=== PATIENT | female | born 1945 | race African-American/Black ===

== ENCOUNTER 2016-09-02 06:13 | Outpatient (CLI) | payer MEDICARE, OTHER ==
[~2016-09-02] VITALS: Ht 149.9 cm; Wt 72.6 kg
[2016-09-02] VITALS (8 sets, daily range): BP systolic 106–138; BP diastolic 52–71
[~2016-09-02 06:13] MED LIST: ASPI81TA2 PO; DILT120C97 PO; DILT180C2 PO
[2016-09-02] MEDS ORDERED: PROCHLORPERAZINE 10 MG/2 ML VIAL. IV PRN (07:00)
[2016-09-02] MEDS ORDERED: HYDROMORPHONE 2 MG/ML VIAL. IV PRN (07:00)
[2016-09-02] MEDS ORDERED: FENTANYL PF 100 MCG/2 ML VIAL. IV PRN ×2 (07:00)
[2016-09-02] MEDS ORDERED: ONDANSETRON PF 4 MG/2 ML VIAL. IV PRN (07:00)
[2016-09-02] MEDS ORDERED: MORPHINE SULFATE 2 MG/ML DISP.SYRIN. IV PRN (07:00)
[2016-09-02] MEDS ORDERED: IV RINGERS,LACTATED 1000ML 1,000 ML IV SCH (07:00)
[2016-09-02] MEDS ORDERED: LIDOCAINE 1% 1 ML SYRINGE. ID PRN (07:00)
[2016-09-02] MEDS ORDERED: LIDOCAINE 2% 20 ML VIAL. ONE (07:16)
[2016-09-02] MEDS ORDERED: IODIXANOL 320 MG/ML 100 ML VIAL. ONE (07:16)
[2016-09-02] MEDS ORDERED: methylPREDNISolone SOD SUCC PF 125 MG/2 ML VIAL. IV ONE (07:30)
[2016-09-02] MEDS ORDERED: FAMOTIDINE 20 MG/2 ML VIAL IVP ONE (07:30)
[2016-09-02] MEDS ORDERED: DIPHENHYDRAMINE 50 MG/ML VIAL IM ONE (07:30)
[2016-09-02 07:50] LABS: HEMATOCRIT 38.1 % (36.0-47.0); HEMOGLOBIN 11.8 g/dL (12.0-15.5); RED BLOOD COUNT 5.26 x10^6/uL (3.50-5.40); RED CELL DISTRIBUTION WIDTH 15.7 % (11.5-14.5); WHITE BLOOD COUNT 8.1 x10^3/uL (4.0-11.0)
[2016-09-02 08:01] LABS: CALCIUM 9.3 mg/dL (8.5-10.1); CREATININE 1.1 mg/dL (0.6-1.0); GFR 59.6; POTASSIUM 4.2 mmol/L (3.5-5.1)
[2016-09-02 08:05] LABS: INR 1.2 (0.8-1.1); PROTHROMBIN TIME PATIENT 14.1 SEC (11.7-14.0)
--- NOTE | 2016-09-02 08:06 | PDOC ---
MODERATE SEDATION ASSESSMENT RISKS/ALTERNATIVES Risks/Alternatives Risks and alternatives of this type of sedation and procedure discussed with: RISK/ALTERNATIVES: Patient H & P ON CHART H & P H & P on chart and reviewed for co-morbid conditions and appropriate labs. H&P ON CHART: Yes STATUS PREG STATUS ASSESSED: N/A MEDS/ALLERGIES REVIEWED Meds/Allergies Reviewed Medications and Allergies including time and route of recently administered narcotics and sedatives. MEDS/ALLERGIES REVIEWED: Yes ASA RATING ASA RATING: II AIRWAY ASSESSMENT Airway Assessment Airway patency, oral function limitations, presence of caps, crowns, dentures, partials, and ability to extend neck assessed. AIRWAY ASSESSMENT: Yes MALLAMPATI SCORE MALLAMPATI SCORE: II PRE-SEDATION ASSESSMENT PRE-SEDATION ASSESSMENT: Yes JASON GUTIÉRREZ MD Sep 02, 2016 08:06
[2016-09-02] MEDS ORDERED: FENTANYL PF 100 MCG/2 ML VIAL. ONE (08:15)
[2016-09-02] MEDS ORDERED: MIDAZOLAM HCL 2 MG/2 ML VIAL. ONE (08:15)
[2016-09-02] MEDS ORDERED: DIPHENHYDRAMINE 50 MG/ML VIAL IVP ONE (08:45)
[2016-09-02] MEDS ORDERED: IODIXANOL 320 MG/ML 100 ML VIAL. IART ONE (09:15)
[2016-09-02] MEDS ORDERED: MIDAZOLAM HCL 2 MG/2 ML VIAL. IV ONE (09:15)
[2016-09-02] MEDS ORDERED: FENTANYL PF 100 MCG/2 ML VIAL. IV ONE (09:15)
[2016-09-02] MEDS ORDERED: LIDOCAINE 2% 20 ML VIAL. IJ ONE (09:15)
[2016-09-02] MEDS ORDERED: BENZOCAINE ONE 20% MUCOSAL SPRAY. MM (09:30)
[2016-09-02] MEDS ORDERED: LIDOCAINE 2% TOPICAL JELLY 30GM TUBE. TP ONE (09:30)
[2016-09-02] MEDS ORDERED: PROPOFOL 20 ML IV ONE (09:40)
[2016-09-02] MEDS: LIDOCAINE 2% VISCOUS 15 ML SOLUTION. SWSW ONE (09:44)
--- NOTE | 2016-09-02 14:36 | CARD ---
APPROVED REPORT EXAM: Transesophageal echocardiogram with color flow Doppler. Reason For Test : valvular disease. PROCEDURE After obtaining informed consent, patient underwent transesophageal echo in the PACU. Type of Sedation : General Anesthesia Sedation was provided by anesthesiologist, see EMR for medications administered. Transesophageal probe was inserted and advanced into esophagus by Radu Mendenhall MD. The RYNE was performed without complications. Throughout the procedure, the blood pressure, pulse oximetry, cardiac rhythm, and rate were monitored . The patient tolerated the procedure without adverse effects. Recovery from conscious sedation was une ventful and vital signs were stable. LEFT VENTRICLE The left ventricle is normal size. There is mild to moderate concentric left ventricular hypertrophy. Left ventricle systolic function is normal. The Ejection Fraction is 60-65%. There is normal LV segm ental wall motion. RIGHT VENTRICLE The right ventricle is normal size. The right ventricular systolic function is normal. ATRIA The left atrium size is normal. The right atrium size is normal. The interatrial septum is intact wit h no evidence for an atrial septal defect or patent foramen ovale as noted on 2-D or Doppler imaging. There is no thrombus noted in the left atrial appendage. AORTIC VALVE The aortic valve is trileaflet with basal to mid tricommisural fusion and restricted leaflet mobility . Doppler and Color Flow revealed no significant aortic regurgitation. There is mild valvular aortic stenosis. MITRAL VALVE The mitral valve is normal in structure and function. There is no mitral valve stenosis. Doppler and Color Flow revealed trace to mild mitral regurgitation. TRICUSPID VALVE The tricuspid valve is normal in structure and function. Doppler and Color Flow revealed no tricuspid valve regurgitation noted. There is no tricuspid valve stenosis. PULMONIC VALVE The pulmonic valve was not visualized. GREAT VESSELS The aortic root is normal in size. The ascending aorta is normal in size. The IVC was visualized and appears normal in size. The SVC was visualized and appears normal in size. Critical Notification Critical Value: No <Conclusion> Left ventricle systolic function is normal. The Ejection Fraction is 60-65%. The aortic valve is trileaflet with basal to mid tricommisural fusion and restricted leaflet mobility . Planimetry GABRIELLA of 1.4 cm2. No significant mitral stenosis. Moderate to severe left ventricular hypertrophy. 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
--- NOTE | 2016-09-02 15:03 | CARD ---
APPROVED REPORT Procedure(s) performed: Right heart cath Left heart cath Aortic valve study HISTORY The patient is a 70 year-old female with a history of : previous NH, hypertension. INDICATION The indication(s) include : atypical chest pain , dyspnea, valvular heart disease. PROCEDURE NARRATIVE The patient was brought electively to the cardiac catheterization lab. A timeout was performed confi rming the patient's name, date of , procedure, and site of procedure. All necessary personnel w ere wearing the appropriate protective equipment and radiation monitor devices. After explaining the risks and benefits of the procedure and alternatives, informed consent was obtained. (See nursing no dioni for medications administered). The right groin was sterilely prepped and draped in the usual fas hion. The right groin was infiltrated with 10 mL of 2% lidocaine for subcutaneous anesthesia. A 6 F sheath was inserted into the right common femoral artery without difficulty. An 8Fr sheath was plac ed in the right common femoral vein. Right and left coronary angiography was performed using JR4 and JL4 catheters. Left ventricular end diastolic pressure was obtained with a dual lumen MPA catheter w ith the aid of a J-tipped and straight guidewires and pullback was performed to assess left ventricul ar pressures/gradients. A PA catheter was then advanced and simlutaneous LVEDP and PCWP was performed . All catheter exchanges and advancements were performed over a guidewire. At case completion the [facility] arterial femoral sheath was removed and hemostasis was achieved with an Angioseal device. Manual compression was used for the vein. The patient tolerated the procedure well and there were no immedi ate complications. HEMODYNAMICS: AO Sat: 96 PA Sat: 78 CO: 6.1 L/min RA: 15 RV: 32/16 PA: 34/17 PCWP: 15 mm Hg Mean Mitral valve gradient 1.5 mm hg at HR of 90 Pull back of the MPA catheter across the LV outflow revealed the following: Mean aortic valve gradient of 28 mm Hg Gradient from LVH and obstructive cardiomyopathy approximately 23 mm Hg Total LV to aortic gradient approximately 51 mm Hg. Assumed GABRIELLA based on MG of 28 mm Hg is 1.2 cm2. CORONARY ANGIOGRAPHY: LM is a large caliber vessel with normal angiographic appearance. LAD is a large caliber vessel with normal angiographic appearance. Ramus is a large caliber vessel with normal angiographic apeparance. LCx is a moderate caliber non-dominant vessel with normal angiographic appearance. OM1 is a moderate caliber vessel with normal angiographic appearance. RCA is a large caliber dominant vessel with normal angiographic appearance. Conclusion 1. Normal biventricular filling pressures. 2. Mild to moderate 3. Mild obstructive cardiomyopathy 4. No evidence of coronary artery disease. Recommendations Aggressive Medical Therapy
== END 2016-09-02 13:00 | disposition home or self-care (01) ==
LOC: CCL 06:13
PROVIDERS: ATTEND Internal Medicine Cardiovascular Disease
DX: I35.0 Nonrheumatic aortic (valve) stenosis (principal); I34.0 Nonrheumatic mitral (valve) insufficiency; I10 Essential (primary) hypertension; J40 Bronchitis, not specified as acute or chronic; K21.9 Gastro-esophageal reflux disease without esophagitis; F41.9 Anxiety disorder, unspecified
CPT/HCPCS: 36415; 76376; 80048; 85027; 85610; 85730; 93312; 93325; C1769; C1771; C1773; C1892; G0269; J1200; J2250; J2704; J2930; J3010; S0028; 93460

== ENCOUNTER → 2017-09-23 | Outpatient (CLI) | payer MEDICARE, OTHER | END | disposition home or self-care (01) | LOC: ECHO 08:08 | DX: Q25.3 Supravalvular aortic stenosis (principal); I08.0 Rheumatic disorders of both mitral and aortic valves; I27.20 Pulmonary hypertension, unspecified; I70.0 Atherosclerosis of aorta | CPT/HCPCS: 93306 ==

== ENCOUNTER → 2018-03-24 | Outpatient (CLI) | payer MEDICARE, OTHER ==
[2016-09-02 12:20] VITALS: BP 138/71
[~2018-03-24] MED LIST changes: +ASPI-630 PO; -ASPI81TA2 PO; +DILT120C80 PO; -DILT120C97 PO; +PERFLUTREN PROTEIN-A MICROSPHR 0.22 MG/ML 3 ML VIAL. IV PRN
--- NOTE | 2018-03-24 11:09 | CARD ---
MR#: [id number] Date of Study: 03/24/2018 Ordering Physician: JASON GUTIÉRREZ, Referring Physician: JASON GUTIÉRREZ, Tech: Luh Lopez YURIY APPROVED REPORT EXAM: Two-dimensional and M-mode echocardiogram with Doppler and color Doppler. Other Information Quality : Good INDICATION Aortic Valve Disease 2D DIMENSIONS RVDd2.9 (2.9-3.5cm)Left Atrium(2D)3.8 (1.6-4.0cm) IVSd1.1 (0.7-1.1cm)Aortic Root(2D)2.9 (2.0-3.7cm) LVDd4.0 (3.9-5.9cm)LVOT Diameter2.0 (1.8-2.4cm) PWd1.1 (0.7-1.1cm)LVDs2.4 (2.5-4.0cm) FS (%) 30.0 %SV51.6 ml LVEF(%)60.0 (>50%) Aortic Valve AoV Peak Emerson.469.1cm/sAoV VTI99.0cm AO Peak GR.88.0mmHgLVOT VTI 31.69cm AO Mean GR.52mmHgAVA (VTI)1.00cm2 AI P 1/2 Haag732sv Mitral Valve MV E Tqehxcut985.9cm/sMV E Peak Gr.17mmHg MV DECEL [id number] A Juhswfpg139.1cm/s MV E Mean Gr.11mmHgE/A Ratio0.9 TDI Lateral E' P. V9.01cm/sMedial E' P. V4.12cm/s E/Lateral E'22.0E/Medial E'48.0 Tricuspid Valve TR P. Gzyvheog364sf/sRAP NNPXZXAB3ilPq TR Peak Gr.75gxZiHRUZ74iqCr Pulmonary Vein S1 Owjapiys48.8cm/sS2 Sisbuzcw77.05cm/s D2 Mtrlxfbf99.1cm/s LEFT VENTRICLE The left ventricle is normal size. There is normal left ventricular wall thickness. The left ventricu lar systolic function is normal and the ejection fraction is within normal range. The Ejection Fracti on is 60-65%. There is normal LV segmental wall motion. Transmitral Doppler flow pattern is Grade I-a bnormal relaxation pattern. RIGHT VENTRICLE The right ventricle is normal size. The right ventricular systolic function is normal. ATRIA The left atrium is moderately dilated. The right atrium size is normal. The interatrial septum is int act with no evidence for an atrial septal defect or patent foramen ovale as noted on 2-D or Doppler i maging. AORTIC VALVE The aortic valve is calcified and displays decreased opening. Cannot rule out bicuspid valve due to d ifficulty visualizing. Doppler and Color Flow revealed moderate aortic regurgitation. Calculated aort ic valve area is 1.0 cm2 with maximum pressure gradient of 88 mmHg and mean pressure gradient of 52 m mHg. Doppler and color-flow analysis revealed severe aortic stenosis. MITRAL VALVE The mitral valve is calcified but opens well. Mitral annular calcification is mild. There is no evide nce of mitral valve prolapse. There is severe mitral valve stenosis. Doppler and Color-flow revealed mild mitral regurgitation. TRICUSPID VALVE The tricuspid valve is normal in structure and function. Doppler and Color Flow revealed mild tricusp id regurgitation. There is moderate-severe pulmonary hypertension. The PA pressure was estimated at 6 1 mmHg. There is no tricuspid valve stenosis. PULMONIC VALVE The pulmonic valve is not well visualized. Doppler and Color Flow revealed trace pulmonic valvular re gurgitation. There is no pulmonic valvular stenosis. GREAT VESSELS The aortic root is normal in size. The ascending aorta is normal in size. The IVC is normal in size a nd collapses >50% with inspiration. PERICARDIAL EFFUSION There is no evidence of significant pericardial effusion. Critical Notification Critical Value: No <Conclusion> The left ventricular systolic function is normal and the ejection fraction is within normal range. Th e Ejection Fraction is 60-65%. There is normal LV segmental wall motion. Doppler and Color Flow revealed moderate aortic regurgitation. Calculated aortic valve area is 1.0 cm2 with maximum pressure gradient of 88 mmHg and mean pressure g radient of 52 mmHg. Doppler and color-flow analysis revealed severe aortic stenosis. There is severe mitral valve stenosis. Doppler and Color Flow revealed mild tricuspid regurgitation. There is moderate-severe pulmonary hype rtension. The PA pressure was estimated at 61 mmHg. Signed by : Jason Gutiérrez, Electronically Approved : 03/24/2018 11:07:27
== END | disposition home or self-care (01) ==
LOC: ECHO 08:43
PROVIDERS: ATTEND Internal Medicine Cardiovascular Disease
DX: I34.2 Nonrheumatic mitral (valve) stenosis (principal); I35.0 Nonrheumatic aortic (valve) stenosis; I07.1 Rheumatic tricuspid insufficiency; I27.20 Pulmonary hypertension, unspecified; I10 Essential (primary) hypertension; E11.9 Type 2 diabetes mellitus without complications; K21.9 Gastro-esophageal reflux disease without esophagitis
CPT/HCPCS: 93306

== ENCOUNTER → 2018-03-24 | Outpatient (CLI) | payer MEDICARE, OTHER ==
[2016-09-02 12:20] VITALS: BP 138/71
[~2018-03-24] MED LIST changes: -PERFLUTREN PROTEIN-A MICROSPHR 0.22 MG/ML 3 ML VIAL. IV PRN
--- NOTE | 2018-03-28 08:42 | RAD ---
DATE: 03/24/2018 EXAM: MAMMO MASTER SCREENING BILATERAL HISTORY: Routine screening COMPARISON: 05/15/2014 This study was interpreted with the benefit of Computerized Aided Detection (CAD). The breast parenchyma shows scattered fibroglandular densities. Breast parenchyma level B. FINDINGS: 2-D and 3-D tomosynthesis imaging was performed in CC and MLO projections. No new or enlarging breast densities are seen. No suspicious microcalcifications are evident. Benign-appearing lymph node type densities are again noted in both axillary regions. IMPRESSION: Stable mammograms without evidence of malignancy. BI-RADS CATEGORY: 1 NEGATIVE RECOMMENDED FOLLOW-UP: 12M 12 MONTH FOLLOW-UP PQRS compliance statement: Patient information was entered into a reminder system with a target due date for the next mammogram. Mammography is a sensitive method for finding small breast cancers, but it does not detect them all and is not a substitute for careful clinical examination. A negative mammogram does not negate a clinically suspicious finding and should not result in delay in biopsying a clinically suspicious abnormality. "Our facility is accredited by the [employer] Mammography Program."
== END | disposition home or self-care (01) ==
LOC: MAMMO 09:12
PROVIDERS: ATTEND Family Medicine
DX: Z12.31 Encounter for screening mammogram for malignant neoplasm of breast (principal); I10 Essential (primary) hypertension; E11.9 Type 2 diabetes mellitus without complications; K21.9 Gastro-esophageal reflux disease without esophagitis; Z85.048 Personal history of other malignant neoplasm of rectum, rectosigmoid junction, and anus; Z90.49 Acquired absence of other specified parts of digestive tract; Z83.3 Family history of diabetes mellitus
CPT/HCPCS: 77063; 77067

== ENCOUNTER → 2018-04-05 | Outpatient (CLI) | payer MEDICARE, OTHER ==
[2016-09-02 12:20] VITALS: BP 138/71
--- NOTE | 2018-04-05 09:34 | RAD ---
MR#: [id number] Date of Study: 04/05/2018 Ordering Physician: JASON GUTIÉRREZ Referring Physician: BLANE NAVA Tech: APPROVED REPORT Test Type: Exercise Stress Nurse/Tech: Princess Yadav R.N. Test Indications: mitral sttenosis Cardiac History: Hypertension, Family history Medications: See Electronic Medical Record Medical History: See Electronic Medical Record Resting ECG: NSR Resting Heart Rate: 88 bpm Resting Blood Pressure: 141/62mmHg Pretest Chest Pain: No chest pain Nurse/Tech Notes Murmur, lung sounds clear Consent: The procedure was explained to the patient in lay terms. Informed consent was witnessed. Walter eout was entered into [employer]. History and Stress Test performed by Princess Yadav R.N. Stress Symptoms DyspneaFatigue POST EXERCISE Reason for Termination: Reached target heart rate Target HR: 126 Max HR: 154 bpm Exercise duration: 4 min, 7 sec min:sec, 2 Stage Max Blood Pressure: 154/80mmHg Blood Pressure response to exercise: Normal blood pressure response during stress. Chest Pain: No. Arrhythmia: Yes. occ PVC ST Change: Yes. slight ST depression INTERPRETATION Stress EKG Conclusion: No evidence of stress induced ischemic changes. Conclusion 1. Baseline EKG with SR and LVH 2. Stress EKG with sinus tachycardia, no ischemic findings. 3. Low workload at 4.6 mets achieved. Signed by : Jason Gutiérrez, Jimmieally Approved : 04/05/2018 09:33:51
== END | disposition home or self-care (01) ==
LOC: NM 08:43
PROVIDERS: ATTEND Internal Medicine Cardiovascular Disease
DX: R00.0 Tachycardia, unspecified (principal); I05.0 Rheumatic mitral stenosis; I10 Essential (primary) hypertension; E11.9 Type 2 diabetes mellitus without complications; K21.9 Gastro-esophageal reflux disease without esophagitis; Z90.49 Acquired absence of other specified parts of digestive tract
CPT/HCPCS: 93017

== ENCOUNTER → 2018-09-04 | Outpatient (CLI) | payer MEDICARE, OTHER ==
[2016-09-02 12:20] VITALS: BP 138/71
[~2018-09-04] MED LIST changes: -DILT120C80 PO; +DILT120C85 PO
--- NOTE | 2018-09-04 10:21 | CARD ---
MR#: [id number] Date of Study: 09/04/2018 Ordering Physician: JASON GUTIÉRREZ, Referring Physician: JASON GTUIÉRREZ, Tech: Yadira Aragon YURIY APPROVED REPORT EXAM: Two-dimensional and M-mode echocardiogram with Doppler and color Doppler. Other Information Quality : AverageHR: 95bpm Rhythm : NSR INDICATION Aortic Valve Disease 2D DIMENSIONS RVDd3.9 (2.9-3.5cm)Left Atrium(2D)4.1 (1.6-4.0cm) IVSd1.4 (0.7-1.1cm)Aortic Root(2D)3.2 (2.0-3.7cm) LVDd4.6 (3.9-5.9cm)LVOT Diameter1.9 (1.8-2.4cm) PWd1.0 (0.7-1.1cm)LVDs2.5 (2.5-4.0cm) FS (%) 46.1 %SV74.5 ml LVEF(%)77.5 (>50%) M-Mode DIMENSIONS Left Atrium(MM)5.09 (2.5-4.0cm)Aortic Root3.30 (2.2-3.7cm) Aortic Valve AoV Peak Emerson.497.9cm/sAoV UTO645.7cm AO Peak GR.99.2mmHgLVOT Peak Emerson.130.5cm/s AO Mean GR.63mmHgAVA (VMAX)0.75cm2 GABRIELLA (VTI)0.01kg6MX P 1/2 Abfi605yo Mitral Valve MV E Nwxzwtye396.0cm/sMV E Peak Gr.27mmHg MV DECEL [id number] A Nxplrhwk120.7cm/s MV E Mean Gr.14mmHgE/A Ratio1.1 MV A Vkwsgyhp092hk Pulmonary Valve PV Peak Kkqgflfn187.9cm/s Tricuspid Valve TR P. Aicpjgmv687ik/sRAP WIMGQVCP5ktSd TR Peak Gr.10irLqOLSB66mhUz LEFT VENTRICLE The left ventricle is normal size. Proximal septal thickening is noted. The left ventricular systolic function is normal. The Ejection Fraction is 65-70%. There is normal LV segmental wall motion. RIGHT VENTRICLE The right ventricle is normal size. There is normal right ventricular wall thickness. The right ventr icular systolic function is normal. ATRIA The left atrium is mildly dilated. The right atrium size is normal. The interatrial septum is intact with no evidence for an atrial septal defect or patent foramen ovale as noted on 2-D or Doppler imagi ng. AORTIC VALVE The aortic valve is moderately calcified. The aortic valve is trileaflet. Doppler and Color Flow reve aled moderate aortic regurgitation. There is severe valvular aortic stenosis. Calculated aortic valve area is 0.8 cm2 with maximum pressure gradient of 99 mmHg and mean pressure gradient of 63 mmHg. MITRAL VALVE The mitral valve is moderately thickened. There is no evidence of mitral valve prolapse. There is sev ere mitral valve stenosis. Calculated mitral valve area is 1.5 cm2 with maximum pressure gradient of 28 mmHg and mean pressure gradient of 15 mmHg. Doppler and Color-flow revealed mild mitral regurgitat ion. TRICUSPID VALVE The tricuspid valve is normal in structure and function. Doppler and Color Flow revealed mild tricusp id regurgitation. There is moderate pulmonary hypertension. The PA pressure was estimated at 54 mmHg. There is no tricuspid valve prolapse or vegetation. There is no tricuspid valve stenosis. PULMONIC VALVE Pulmonic valve is not well visualized. Doppler and Color Flow revealed trace pulmonic valvular regurg itation. There is no pulmonic valvular stenosis. GREAT VESSELS The aortic root is normal in size. The ascending aorta is normal in size. The IVC is normal in size a nd collapses >50% with inspiration. PERICARDIAL EFFUSION There is no evidence of significant pericardial effusion. Critical Notification Critical Value: No <Conclusion> The left ventricular systolic function is normal. The Ejection Fraction is 65-70%. There is normal LV segmental wall motion. Severe valvular aortic stenosis with calculated GABRIELLA 0.8 cm2 and mean pressure gradient of 63 mmHg. Moderate aortic regurgitation. Severe mitral valve stenosis with mean pressure gradient of 15 mmHg. Mild mitral regurgitation. Mild tricuspid regurgitation. There is moderate pulmonary hypertension. The PA pressure was estimated at 54 mmHg. There is no evidence of significant pericardial effusion. Signed by : William Hernandez, Electronically Approved : 09/04/2018 10:19:36
== END | disposition home or self-care (01) ==
LOC: ECHO 08:43
PROVIDERS: ATTEND Internal Medicine Cardiovascular Disease
DX: Q25.3 Supravalvular aortic stenosis (principal); I08.3 Combined rheumatic disorders of mitral, aortic and tricuspid valves; I27.20 Pulmonary hypertension, unspecified
CPT/HCPCS: 93306

== ENCOUNTER → 2019-05-21 | Outpatient (CLI) | payer MEDICARE, OTHER ==
[2016-09-02 12:20] VITALS: BP 138/71
[~2019-05-21] MED LIST changes: -DILT120C85 PO; +DILT120C99 PO
--- NOTE | 2019-05-21 14:41 | RAD ---
DATE: 05/21/2019 EXAM: MAMMO MASTER SCREENING BILATERAL HISTORY: Routine screening COMPARISON: 05/15/2014, 03/24/2018 mammographic exams This study was interpreted with the benefit of Computerized Aided Detection (CAD). Breast Density: SCATTERED The breast parenchyma shows scattered fibroglandular densities. Breast parenchyma level B. FINDINGS: No suspicious calcific lesions, masses, or distortion. IMPRESSION: Stable BI-RADS CATEGORY: 1 NEGATIVE RECOMMENDED FOLLOW-UP: 12M 12 MONTH FOLLOW-UP PQRS compliance statement: Patient information was entered into a reminder system with a target due date for the next mammogram. Mammography is a sensitive method for finding small breast cancers, but it does not detect them all and is not a substitute for careful clinical examination. A negative mammogram does not negate a clinically suspicious finding and should not result in delay in biopsying a clinically suspicious abnormality. "Our facility is accredited by the [employer] Mammography Program."
== END | disposition home or self-care (01) ==
LOC: MAMMO 10:40
PROVIDERS: ATTEND Family Medicine
DX: Z12.31 Encounter for screening mammogram for malignant neoplasm of breast (principal)
CPT/HCPCS: 77063; 77067

== ENCOUNTER → 2019-08-10 | Outpatient (CLI) | payer MEDICARE, OTHER ==
[2016-09-02 12:20] VITALS: BP 138/71
--- NOTE | 2019-08-10 15:55 | CARD ---
MR#: [id number] Date of Study: 08/10/2019 Ordering Physician: JASON GUTIÉRREZ, Referring Physician: JASON GUTIÉRREZ, Tech: Luh Lopez [facility] APPROVED REPORT EXAM: Two-dimensional and M-mode echocardiogram with Doppler and color Doppler. Other Information Quality : Good INDICATION Valvular Heart Disease 2D DIMENSIONS RVDd2.9 (2.9-3.5cm)Left Atrium(2D)4.3 (1.6-4.0cm) IVSd1.4 (0.7-1.1cm)Aortic Root(2D)2.9 (2.0-3.7cm) LVDd4.5 (3.9-5.9cm)LVOT Diameter2.0 (1.8-2.4cm) PWd1.0 (0.7-1.1cm)LVDs2.5 (2.5-4.0cm) FS (%) 30.0 %SV68.7 ml LVEF(%)60.0 (>50%) Aortic Valve AoV Peak Emerson.521.4cm/sAoV VQB746.8cm AO Peak GR.108.8mmHgLVOT Peak Emerson.155.7cm/s AO Mean GR.65mmHgAVA (VMAX)0.89cm2 GABRIELLA (VTI)1.70fy4CJ P 1/2 Rgay722lz Mitral Valve MV E Kcgtxbai433.4cm/sMV E Peak Gr.30mmHg MV DECEL [id number] A Odsvvaoz914.3cm/s MV E Mean Gr.17mmHgE/A Ratio0.9 Tricuspid Valve TR P. Chyplrey337rv/sRAP ALOGNCAQ4naSx TR Peak Gr.22uhDvHXAP37tgAu Pulmonary Vein S1 Amjwzpeo99.3cm/sD2 Lrjjovuc20.8cm/s LEFT VENTRICLE The left ventricle is normal size. There is mild to moderate concentric left ventricular hypertrophy. The left ventricular systolic function is normal. The Ejection Fraction is 60-65%. There is normal L V segmental wall motion. Transmitral Doppler flow pattern is Grade I-abnormal relaxation pattern. RIGHT VENTRICLE The right ventricle is normal size. The right ventricular systolic function is normal. ATRIA The left atrium is mildly dilated. The right atrium size is normal. The interatrial septum is intact with no evidence for an atrial septal defect or patent foramen ovale as noted on 2-D or Doppler imagi ng. AORTIC VALVE The aortic valve is calcified and displays decreased opening. Doppler and Color Flow revealed moderat e aortic regurgitation. Calculated aortic valve area is 1.0 cm2 with maximum pressure gradient of 109 mmHg and mean pressure gradient of 56 mmHg. Doppler and color-flow analysis revealed severe aortic s tenosis. MITRAL VALVE Mitral annular calcification is mild. There is no evidence of mitral valve prolapse. Severe mitral va lve stenosis with mean gradient 17 mm Hg. Doppler and Color-flow revealed mild mitral regurgitation. TRICUSPID VALVE The tricuspid valve is normal in structure and function. Doppler and Color Flow revealed mild tricusp id regurgitation. There is severe pulmonary hypertension. The PA pressure was estimated at 71 mmHg. T here is no tricuspid valve stenosis. PULMONIC VALVE The pulmonic valve is not well visualized. Doppler and Color Flow revealed trace to mild pulmonic maynor vular regurgitation. There is no pulmonic valvular stenosis. GREAT VESSELS The aortic root is normal in size. The ascending aorta is normal in size. The IVC is normal in size a nd collapses >50% with inspiration. PERICARDIAL EFFUSION There is no evidence of significant pericardial effusion. Critical Notification Critical Value: No <Conclusion> The left ventricular systolic function is normal. The Ejection Fraction is 60-65%. There is normal LV segmental wall motion. Transmitral Doppler flow pattern is Grade I-abnormal relaxation pattern. Severe aortic valvular stenosis with maximum pressure gradient of 109 mmHg and mean pressure gradient of 56 mmHg. Moderate aortic regurgitation. Severe mitral valve stenosis with mean gradient 17 mm Hg. Mild mitral regurgitation. Mild tricuspid regurgitation. There is severe pulmonary hypertension. The PA pressure was estimated at 71 mmHg. There is no evidence of significant pericardial effusion. Signed by : William Hernandez, Electronically Approved : 08/10/2019 15:54:39
== END | disposition home or self-care (01) ==
LOC: ECHO 13:20
PROVIDERS: ATTEND Internal Medicine Cardiovascular Disease
DX: I08.8 Other rheumatic multiple valve diseases (principal); I27.20 Pulmonary hypertension, unspecified
CPT/HCPCS: 93306

== ENCOUNTER → 2020-12-19 | Outpatient (CLI) | payer MEDICARE, OTHER ==
[2016-09-02 12:20] VITALS: BP 138/71
--- NOTE | 2020-12-19 15:34 | CARD ---
MR#: [id number] Date of Study: 12/19/2020 Ordering Physician: JASNO GUTIÉRREZ, Referring Physician: JASON GUTIÉRREZ, Tech: Giovanna Moore [facility] APPROVED REPORT EXAM: Two-dimensional and M-mode echocardiogram with Doppler and color Doppler. Other Information Quality : AverageHR: 69bpm Rhythm : NSR INDICATION RISK FACTORS Hypertension Obesity Hyperlipidemia 2D DIMENSIONS RVDd3.9 (2.9-3.5cm)Left Atrium(2D)4.9 (1.6-4.0cm) IVSd2.0 (0.7-1.1cm)Aortic Root(2D)2.7 (2.0-3.7cm) LVDd3.8 (3.9-5.9cm)LVOT Diameter1.9 (1.8-2.4cm) PWd1.3 (0.7-1.1cm)IVSs2.2 (0.8-1.2cm) LVDs3.1 (2.5-4.0cm)FS (%) 17.6 % PWs1.8 (0.8-1.2cm)SV22.7 ml LVEF(%)37.4 (>50%) Aortic Valve AoV Peak Emerson.456.3cm/sAoV BPW134.9cm AO Peak GR.83.3mmHgLVOT Peak Emerson.143.6cm/s LVOT VTI 31.11cmAO Mean GR.54mmHg GABRIELLA (VMAX)0.91bg0NJU (VTI)0.84cm2 AI P 1/2 Kkkm615md Mitral Valve MV E Kdtobqpk965.6cm/sMV DECEL IPVO740wb MV A Difxuoar695.0cm/sMV WTB56yy E/A Ratio1.4MVA (PHT)2.51cm2 TDI E/Lateral E'28.7E/Medial E'35.5 Pulmonary Valve PV Peak Cuqodeit223.6cm/sPV Peak Grad.4mmHg Tricuspid Valve TR P. Gcubzdgi839sk/sTR Peak Gr.44mmHg Pulmonary Vein S1 Qfhonois84.6cm/sD2 Jtfmewya56.6cm/s PVa mlcqluzg602axbc LEFT VENTRICLE The left ventricle is normal size. There is moderate concentric left ventricular hypertrophy. The lef t ventricular systolic function is normal and the ejection fraction is within normal range. Estimated ejection fraction 65% There is normal LV segmental wall motion. Tissue Doppler imaging reveals moder ate left ventricular diastolic dysfunction. RIGHT VENTRICLE The right ventricle is normal size. There is normal right ventricular wall thickness. The right ventr icular systolic function is normal. ATRIA The left atrium is severely dilated. The right atrium size is normal. The interatrial septum is intac t with no evidence for an atrial septal defect or patent foramen ovale as noted on 2-D or Doppler theodore ging. AORTIC VALVE The aortic valve is calcified and displays decreased opening. Doppler and Color Flow revealed moderat e aortic regurgitation. There is moderate to severe valvular aortic stenosis. This is likely related to outflow tract obstruction with mean gradient of 40 mm Hg. Previously evaluated by cath as well. MITRAL VALVE The mitral valve is moderately thickened with restricted leaflet motion and overall rheumatic appeara nce. There is no evidence of mitral valve prolapse. There is moderate mitral stenosis. MG of 7.5 mm H g. Doppler and Color-flow revealed mild mitral regurgitation. TRICUSPID VALVE The tricuspid valve is normal in structure and function. Doppler and Color Flow revealed mild tricusp id regurgitation. Estimated PAP 45-50 mmHg. There is no tricuspid valve stenosis. PULMONIC VALVE The pulmonary valve is normal in structure and function. Doppler and Color Flow revealed mild pulmoni c valvular regurgitation. There is no pulmonic valvular stenosis. GREAT VESSELS The aortic root is normal in size. The ascending aorta is normal in size. The IVC is normal in size a nd collapses >50% with inspiration. PERICARDIAL EFFUSION There is no evidence of significant pericardial effusion. Critical Notification Critical Value: No <Conclusion> The left ventricular systolic function is normal and the ejection fraction is within normal range. E stimated ejection fraction 65% There is normal LV segmental wall motion. Doppler and Color Flow revealed moderate aortic regurgitation. There is moderate to severe valvular aortic stenosis. This is likely related to outflow tract obstruc tion with mean gradient of 40 mm Hg. Previously evaluated by cath as well. Doppler and Color-flow revealed mild mitral regurgitation. There is moderate mitral stenosis. MG of 7.5 mm Hg. Doppler and Color Flow revealed mild tricuspid regurgitation. Estimated PAP 45-50 mmHg. Signed by : Jason Gutiérrez, Electronically Approved : 12/19/2020 15:34:09
== END ==
LOC: ECHO 09:43
PROVIDERS: ATTEND Internal Medicine Cardiovascular Disease
DX: I08.8 Other rheumatic multiple valve diseases (principal); I27.0 Primary pulmonary hypertension
CPT/HCPCS: 93306

== ENCOUNTER → 2021-12-03 | Outpatient (CLI) | payer MEDICARE, OTHER ==
[2016-09-02 12:20] VITALS: BP 138/71
[2021-12-03 09:24] LABS: ALBUMIN 3.6 g/dL (3.4-5.0); ALBUMIN/GLOBULIN RATIO 0.8 (1.0-1.7); CALCIUM 9.5 mg/dL (8.5-10.1); CREATININE 1.1 mg/dL (0.6-1.0); GFR 58.6; POTASSIUM 4.1 mmol/L (3.5-5.1); TOTAL BILIRUBIN 0.6 mg/dL (0.2-1.0); TOTAL PROTEIN 7.9 g/dL (6.4-8.2)
[2021-12-03 09:25] LABS: CHOLESTEROL/HDL RATIO 3.6
--- NOTE | 2021-12-03 16:19 | CARD ---
MR#: [id number] Date of Study: 12/03/2021 Ordering Physician: JASON GUTIÉRREZ, Referring Physician: JASON GUTIÉRREZ, Tech: Giovanna Moore [facility] APPROVED REPORT EXAM: Two-dimensional and M-mode echocardiogram with Doppler and color Doppler. Other Information Quality : Technically LimitedHR: 87bpm Rhythm : NSR INDICATION Murmur RISK FACTORS Hypertension Obesity Diabetes 2D DIMENSIONS Left Atrium(2D)5.0 (1.6-4.0cm)IVSd1.4 (0.7-1.1cm) Aortic Root(2D)3.4 (2.0-3.7cm)LVDd4.6 (3.9-5.9cm) LVOT Diameter2.2 (1.8-2.4cm)PWd1.2 (0.7-1.1cm) IVSs2.7 (0.8-1.2cm)LVDs2.6 (2.5-4.0cm) FS (%) 43.2 %PWs1.6 (0.8-1.2cm) SV74.0 mlLVEF(%)74.4 (>50%) Aortic Valve AoV Peak Emerson.441.6cm/sAoV MGL968.5cm AO Peak GR.78.0mmHgLVOT Peak Emerson.121.0cm/s LVOT VTI 33.02cmAO Mean GR.57mmHg GABRIELLA (VMAX)0.24gx5VZV (VTI)1.09cm2 AI P 1/2 Xhtk271vi Mitral Valve MV E Rmpcwkat430.8cm/sMV DECEL XFTV352fl MV A Qlpbveaf762.5cm/sMV NDW97la E/A Ratio1.3MVA (PHT)2.70cm2 TDI E/Lateral E'28.8E/Medial E'41.3 Pulmonary Valve PV Peak Fcmizorf458.6cm/sPV Peak Grad.4mmHg Tricuspid Valve TR P. Crjiwomt651lb/sTR Peak Gr.47mmHg LEFT VENTRICLE The left ventricle is normal size. There is mild concentric left ventricular hypertrophy. The left ve ntricular systolic function is normal. Estimated ejection fraction 60-65%. There is normal LV segmen rupa wall motion. Transmitral Doppler flow pattern is Grade II-pseudonormal filling dynamics. RIGHT VENTRICLE The right ventricle is normal size. There is normal right ventricular wall thickness. The right ventr icular systolic function is normal. ATRIA The left atrium is mildly dilated. The right atrium size is normal. The interatrial septum is intact with no evidence for an atrial septal defect or patent foramen ovale as noted on 2-D or Doppler imagi ng. AORTIC VALVE The aortic valve is calcified and displays decreased opening. Doppler and Color Flow revealed moderat e aortic regurgitation. There is moderate valvular aortic stenosis. MITRAL VALVE The mitral valve is calcified and displays decreased opening. There is no evidence of mitral valve pr olapse. There is moderate mitral valve stenosis. Doppler and Color-flow revealed mild mitral regurgit ation. TRICUSPID VALVE The tricuspid valve leaflets are thickened or calcified, but open well. Doppler and Color Flow reveal ed mild tricuspid regurgitation. Estimated PAP 45-50%. There is no tricuspid valve stenosis. PULMONIC VALVE The pulmonary valve is normal in structure and function. Doppler and Color Flow revealed mild pulmoni c valvular regurgitation. GREAT VESSELS The aortic root is normal in size. The ascending aorta is normal in size. The IVC is normal in size a nd collapses >50% with inspiration. PERICARDIAL EFFUSION There is no evidence of significant pericardial effusion. Critical Notification Critical Value: No <Conclusion> The left ventricular systolic function is normal. Estimated ejection fraction 60-65%. There is normal LV segmental wall motion. Transmitral Doppler flow pattern is Grade II-pseudonormal filling dynamics. Moderate aortic regurgitation. Moderate mitral valve stenosis. Mild mitral regurgitation. Mild tricuspid regurgitation. Estimated PAP 45-50%. There is no evidence of significant pericardial effusion. Signed by : William Hernandez, Electronically Approved : 12/03/2021 16:19:23
== END ==
LOC: ECHO 08:27
PROVIDERS: ATTEND Internal Medicine Cardiovascular Disease
DX: I08.8 Other rheumatic multiple valve diseases (principal); I10 Essential (primary) hypertension; I27.0 Primary pulmonary hypertension
CPT/HCPCS: 36415; 80053; 80061; 83721; 83880; 93306; C8929